=== PATIENT | female | born 1980 | race Asian ===

== ENCOUNTER 2016-12-30 23:17 | Emergency (ER) | payer MEDICAID, OTHER ==
--- NOTE | 2016-12-30 23:47 | ED Physician Chart ---
Chief Complaint/HPI - Patient Information Date Seen:: 12/30/16 Time Seen:: 23:24 Chief Complaint:: SORE THROAT History of Present Illness:: THIS IS A 36 YO FEMALE WHO WAS SENT HERE FROM AN URGENT CARE FOR EVALUATION AND TREATMENT. SHE STATES THAT SHE HAS AN ABSCESS IN HER THROAT THAT IS PAINFUL. SHE DENIES HAVING FEVER AND A COUGH. SHE STATES THAT SHE HAS HAD THIS SAME PROBLEM IN THE PAST. SHE DENIES CHEST CONGESTION AND COUGH. Allergies:: Allergies Allergy/AdvReac Type Severity Reaction Status Date / Time No Known Allergies Allergy Verified 12/30/16 23:28 Vitals:: Vital Signs - 8 hr 12/30/16 23:20 Temp 97.9 F HR 76 RR 18 BP 140/65 O2 Sat % 100 Historian:: Patient Review:: Nurse's Note Reviewed Review of Systems - Review of Systems General/Constitutional: No fever, No chills, No weight loss, No weakness, No diaphoresis, No edema, No loss of appetite Skin: No skin lesions, No rash, No bruising Head: No headache, No light-headedness Eyes: No loss of vision, No pain, No diplopia ENT: No earache, No nasal drainage, Sore throat, No tinnitus Neck: No neck pain, No swelling, No thyromegaly, No stiffness, No mass noted Cardio Vascular: No chest pain, No palpitations, No PND, No orthopnea, No edema Pulmonary: No SOB, No cough, No sputum, No wheezing GI: No nausea, No vomiting, No diarrhea, No pain, No melena, No hematochezia, No constipation, No hematemesis G/U: No dysuria, No frequency, No hematuria Musculoskeletal: No bone or joint pain, No back pain, No muscle pain Endocrine: No polyuria, No polydipsia Psychiatric: No prior psych history, No depression, No anxiety, No suicidal ideation Hematopoietic: No bruising, No lymphadenopathy Allergic/Immuno: No urticaria, No angioedema Neurological: No syncope, No focal symptoms, No weakness, No paresthesia, No headache, No seizure, No dizziness, No confusion, No vertigo Past Medical History - Past Medical History Obtainable: Yes Past Medical History: No significant medical hx Family History: None Social History: Non Smoker, No Alcohol, No Drug Use Surgical History: None Psychiatricy History: None Medication: Reviewed Family Medical History - Family Member Mother History Unknown: Yes Physical Exam - Physical Examination General/Constitutional: Awake, Well-developed, well-nourished, Alert, No distress, GCS 15, Non-toxic appearing, Ambulatory Head: Atraumatic Eyes: Lids, conjuctiva normal, PERRL, EOMI Skin: Nl inspection, No rash, No skin lesions, No ecchymosis, Well hydrated, No lymphadenopathy ENMT: External ears, nose nl, Nasal exam nl, Lips, teeth, gums nl, Oropharynx nl Other ENMT comments:: THERE IS A PERITONSILLAR ABSCESS ON THE RIGHT SIDE, RED, TENDER WITH LYMPHNODES ON THE SAME SIDE THAT ARE TENDER AND SWOLLEN. Neck: Nontender, Full ROM w/o pain, No JVD, No nuchal rigidity, No bruit, No mass, No stridor Respiratory: Nl effort/Exclusion, Clear to Auscultation, No Wheeze/Rhonchi/Rales Cardio Vascular: RRR, No murmur, gallop, rubs, NL S1 S2 GI: No tenderness/rebounding/guarding, No organomegaly, No hernia, Normal BS's, Nondistended, No mass/bruits, No McBurney tenderness : No CVA tenderness Extremities: No tenderness or effusion, Full ROM, normal strength in all extremities, No edema, Normal digits & nails Neuro/Psych: Alert/oriented, DTR's symmetric, Normal sensory exam, Normal motor strength, Judgement/insight normal, Mood normal, Normal gait, No focal deficits Misc: normal gait, Normal back, No paraspinal tenderness Assessment - Assessment General Assessment: RIGHT SIDED QUINSY ED Septic Shock - . Is Septic Shock (SBP<90, OR Lactate>4 mmol\L) present?: No - <6hrs of presentation: Vital Signs: Vital Signs - 8 hr 12/30/16 23:20 Temp 97.9 F HR 76 RR 18 BP 140/65 O2 Sat % 100 Reassessment (Disposition) - Reassessment Reassessment Condition:: Unchanged - Diagnosis Diagnosis:: RIGHT SIDED PERITONSILLAR ABSCESS - Aftercare/Follow up Instructions Aftercare/Follow-Up Instructions:: Counseled pt regarding lab results/diagnosis & need follow up, Refer to Discharge Instructions, Counseled pt & family regarding lab results/diagnosis & need follow up - Patient Disposition Discharge/Transfer:: Home Condition at Disposition:: Unchanged ED Discharge Plan - Patient Disposition Admit/Discharge/Transfer: PT DISCHARGED HOME Condition at Disposition: Unchanged Instructions: Peritonsillar Abscess Additional Instructions: FILL YOUR PRESCRIPTION AND TAKE IT DIRECTED. FOLLOW UP WITH YOUR REGULAR DOCTOR IN 1-2 DAYS IF NOT FEELING ANY BETTER. Forms: Work Release Form
== END 2016-12-31 00:05 | disposition home or self-care (01) ==
LOC: ER 23:17
DX: J36 Peritonsillar abscess (principal)
CPT/HCPCS: J0696; Z7502